=== PATIENT | male | born 1965 | race Hispanic/Latino ===

== ENCOUNTER 2017-12-31 10:55 | Emergency (ER) | payer SELFPAY ==
[2017-12-31] MEDS ORDERED: HYDROCODONE/APAP 10/325 TAB ONE (11:50)
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
[2017-12-31 12:57] VITALS: BP 177/104; TEMP 98; O2SAT 99
== END 2017-12-31 12:51 | disposition home or self-care (01) ==
LOC: ER 10:55
DX: T20.64XA Corrosion of second degree of nose (septum), initial encounter (principal); T54.3X1A Toxic effect of corrosive alkalis and alkali-like substances, accidental (unintentional), initial encounter; T28.5XXA Corrosion of mouth and pharynx, initial encounter; T32.0 Corrosions involving less than 10% of body surface; Y93.89 Activity, other specified; Y92.69 Other specified industrial and construction area as the place of occurrence of the external cause; Y99.0 Civilian activity done for income or pay; F17.210 Nicotine dependence, cigarettes, uncomplicated; K21.9 Gastro-esophageal reflux disease without esophagitis
CPT/HCPCS: 99283

== ENCOUNTER 2019-01-06 20:55 | Emergency (ER) | payer SELFPAY ==
[2019-01-06 21:30] LABS: Absolute Lymphocytes (CBC) 1.9 K/uL (0.7-4.9); Basophils % 0.5 % (0-1.3); Eosinophils % 3.1 % (0-4.4); Hematocrit 43.6 % (39.6-49.0); Lymphocytes % 23.6 % (15.3-44.8); MPV 8.2 fL (7.6-11.3); Monocytes % 6.7 % (3.3-12.3); RBC Red Blood Cell Count 5.14 M/uL (4.33-5.43)
[2019-01-06 21:34] LABS: Protime INR 0.91
--- NOTE | 2019-01-06 21:36 | RAD REPORT ---
EXAM DESCRIPTION: RAD - Chest Single View - 01/06/2019 9:20 pm CLINICAL HISTORY: CHEST PAIN Chest pain. COMPARISON: Chest Single View dated 08/26/2016; CHEST PA AND LAT 2 VIEW dated 11/22/2011; CHEST SINGLE VIEW dated 11/19/2008 FINDINGS: Portable technique limits examination quality. The lungs are grossly clear. The heart is normal in size. No displaced fractures. IMPRESSION: No acute intrathoracic process suspected.
[2019-01-06 21:50] LABS: ALT/SGPT 24 U/L (12-78); AST/SGOT 21 U/L (15-37); Albumin 3.6 g/dL (3.4-5.0); Alkaline Phosphatase 96 U/L (45-117); BUN Blood Urea Nitrogen 16 mg/dL (7-18); Bicarbonate 27 mmol/L (21-32); Bilirubin Direct < 0.1 mg/dL (0-0.2); Bilirubin Total 0.3 mg/dL (0.2-1.0); Glucose Level 95 mg/dL (74-106); Magnesium 2.5 mg/dL (1.8-2.4); NT PRO-BNP 14 pg/mL (<125); Potassium 3.7 mmol/L (3.5-5.1); Protein, Total 7.3 g/dL (6.4-8.2); Sodium Level 143 mmol/L (136-145); Troponin (Emerg Dept Use Only) < 0.02 ng/mL (0.0-0.045)
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
[2019-01-06] MEDS ORDERED: MAGNE/ALUM HYDROXD 30 ML UCUP ONE (22:40)
[2019-01-06] MEDS ORDERED: LIDOCAINE VISCOUS 2% SOLN 15 ML UDC ONE (22:40)
--- NOTE | 2019-01-07 10:57 | EKG ---
Test Date: 2019-01-06 Test Time: 21:10:15 Faro Dealer: ALL MEASUREMENT RESULTS: Intervals: Rate: 77 FL: 150 QRSD: 104 QT: 402 QTc: 454 [place]: P: -9 FL: 150 QRS: -21 T: 50 INTERPRETIVE STATEMENTS: Normal sinus rhythm Normal ECG Compared to ECG 11/19/2008 06:06:41 No significant changes Electronically Signed On 01-07-19 10:55:01 CDT by Abimael Conteh
[2019-01-08 18:00] VITALS: BP 110/81; O2SAT 100
== END 2019-01-06 22:31 | disposition home or self-care (01) ==
LOC: ER 20:55
DX: F10.10 Alcohol abuse, uncomplicated (principal); F17.210 Nicotine dependence, cigarettes, uncomplicated
CPT/HCPCS: 36415; 71045; 80048; 80076; 80320; 83735; 83880; 84484; 85025; 85610; 93005; 99285

== ENCOUNTER 2020-10-09 12:54 | Emergency (ER) | payer BC, SELFPAY ==
--- NOTE | 2020-10-09 13:23 | EDPHYS ---
Physician Documentation [facility] Name: Chris Sorto Age: 55 yrs Sex: Male : 1965 Arrival Date: 10/09/2020 Time: 12:57 Bed 6 Private MD: ED Physician Isabell Singh HPI: 10/09 13:15 This 55 yrs old Male presents to ER via Ambulatory with complaints of cp Abdominal Problem. 13:15 The patient presents with concern for hernia. Onset: The symptoms/episode cp began/occurred 1 week(s) ago. Associated signs and symptoms: Pertinent negatives: constipation, diarrhea, dysuria, fever, shortness of breath, testicular pain, vomiting. Severity of pain: in the emergency department the pain no pain. Historical: - Allergies: 13:12 No Known Allergies; aa5 - PMHx: 13:11 GERD; aa5 - PSHx: 13:11 None; aa5 - Immunization history:: Adult Immunizations up to date. - Social history:: Smoking status: unknown. ROS: 13:15 All other systems are negative. cp Exam: 13:15 Head/Face: Normocephalic, atraumatic. cp 13:15 Constitutional: The patient appears in no acute distress, alert, awake, comfortable, non-toxic, well developed, well nourished. 13:15 Chest/axilla: Inspection: normal. 13:15 Cardiovascular: Rate: normal. 13:15 Respiratory: the patient does not display signs of respiratory distress, Respirations: normal, no use of accessory muscles, no retractions. 13:15 Abdomen/GI: Inspection: abdomen appears normal, Palpation: abdomen is soft and non-tender, in all quadrants, Hernia: noted in the left inguinal area, incarceration, is not appreciated, tenderness, is not appreciated, reduced when patient lays flat. 13:15 Skin: cellulitis, is not appreciated, no rash present. Vital Signs: 13:04 BP 109 / 82; Pulse 83; Resp 16 S; Temp 98.1(O); Pulse Ox 100% on R/A; aa5 MDM: 13:11 Patient medically screened. cp 13:22 Data reviewed: vital signs, nurses notes, and as a result, I will discharge patient. cp 13:22 Counseling: I had a detailed discussion with the patient and/or guardian regarding: the cp historical points, exam findings, and any diagnostic results supporting the discharge/admit diagnosis, the need for outpatient follow up, for definitive care, a general surgeon, to return to the emergency department if symptoms worsen or persist or if there are any questions or concerns that arise at home. Administered Medications: No medications were administered Disposition: 13:30 Chart complete. cp Disposition: 10/09/20 13:22 Discharged to Home. Impression: Unilateral inguinal hernia, without obstruction or gangrene - left. - Condition is Stable. - Discharge Instructions: Inguinal Hernia, Adult. - Medication Reconciliation Form, Thank You Letter, Antibiotic Education, Prescription Opioid Use form. - Follow up: Ben Mccann MD; When: 10-11-2020; Reason: Recheck today's complaints, in office. - Problem is an ongoing problem. - Symptoms have improved. Addendum: 10/10/2020 18:42 Co-signature as Attending Physician, Isabell Singh MD. m a2 Signatures: Sis Ca, RN RN aa5 Freddy Melara PA PA cp Gerry Mcqueen, JASSON RN bp Isabell Singh MD MD ma2 Corrections: (The following items were deleted from the chart) 10/09 14:03 13:22 10/09/2020 13:22 Discharged to Home. Impression: Unilateral inguinal hernia, bp without obstruction or gangrene - left. Condition is Stable. Forms are Medication Reconciliation Form, Thank You Letter, Antibiotic Education, Prescription Opioid Use. Follow up: Ben Mccann; When: 10-11-2020; Reason: Recheck today's complaints, in office. Problem is an ongoing problem. Symptoms have improved. cp
--- NOTE | 2020-10-09 13:23 | ER ---
Nurse's Notes [facility] Name: Chris Sorto Age: 55 yrs Sex: Male : 1965 Arrival Date: 10/09/2020 Time: 12:57 Bed 6 Private MD: Diagnosis: Unilateral inguinal hernia, without obstruction or gangrene-left Presentation: 10/09 13:04 Chief complaint: Patient states: lower abd pain x 1 week ago. Pt states "I think I have aa5 a hernia because on I felt a bulge". 13:04 Onset of symptoms was September 2020. aa5 13:04 Acuity: GOLDEN 3 aa5 13:04 Method Of Arrival: Ambulatory aa5 13:04 Coronavirus screen: At this time, the client does not indicate any symptoms associated aa5 with coronavirus-19. Ebola Screen: Patient negative for fever greater than or equal to 101.5 degrees Fahrenheit, and additional compatible Ebola Virus Disease symptoms. 13:04 Initial Sepsis Screen: Does the patient meet any 2 criteria? No. Patient's initial aa5 sepsis screen is negative. Does the patient have a suspected source of infection? No. Patient's initial sepsis screen is negative. Risk Assessment: Do you want to hurt yourself or someone else? Patient reports no desire to harm self or others. Triage Assessment: 13:05 General: Appears distressed, uncomfortable, Behavior is cooperative, appropriate for bp age, anxious. Pain: Complains of pain in abdomen. EENT: No deficits noted. Neuro: No deficits noted. Cardiovascular: No deficits noted. Respiratory: No deficits noted. GI: Abdomen is non-distended. : No signs and/or symptoms were reported regarding the genitourinary system. Derm: No deficits noted. Musculoskeletal: No deficits noted. Historical: - Allergies: 13:12 No Known Allergies; aa5 - PMHx: 13:11 GERD; aa5 - PSHx: 13:11 None; aa5 - Immunization history:: Adult Immunizations up to date. - Social history:: Smoking status: unknown. Screenin:15 Abuse screen: Denies threats or abuse. Denies injuries from another. Nutritional bp screening: No deficits noted. Tuberculosis screening: No symptoms or risk factors identified. Fall Risk None identified. Assessment: 13:05 General: SEE TRIAGE NOTE. bp 14:00 Reassessment: PT D/C HOME AMBULATORY, DX WITH BILATERAL INGUINL HERNIA. bp Vital Signs: 13:04 BP 109 / 82; Pulse 83; Resp 16 S; Temp 98.1(O); Pulse Ox 100% on R/A; aa5 ED Course: 12:57 Patient arrived in ED. as 13:04 Arm band placed on. aa5 13:06 Freddy Melara PA is PHCP. cp 13:06 Isabell Snigh MD is Attending Physician. cp 13:11 Triage completed. aa5 13:15 Patient has correct armband on for positive identification. Bed in low position. Call bp light in reach. Side rails up X2. 13:21 Ben Mccann MD is Referral Physician. cp 13:54 Gerry Mcqueen, RN is Primary Nurse. bp 13:56 No provider procedures requiring assistance completed. Patient did not have IV access rb3 during this emergency room visit. Administered Medications: No medications were administered Outcome: 13:22 Discharge ordered by MD. cp 13:56 Discharged to home ambulatory. rb3 13:56 Condition: stable 13:56 Discharge instructions given to patient, Instructed on discharge instructions, follow up and referral plans. Demonstrated understanding of instructions, follow-up care, Prescriptions given X none 14:03 Patient left the ED. bp Signatures: Indu Key Audri, RN RN aa5 Freddy Melara PA PA cp Gerry Mcqueen, RN RN bp Humaira Forrest, RN RN rb3 Corrections: (The following items were deleted from the chart) 14:03 14:00 Reassessment: PT D/C HOME AMBULATORY, DX WITH ABDOMINAL HERNIA bp bp
[2020-10-09 18:33] VITALS: BP 109/82; TEMP 98.1; O2SAT 100
== END 2020-10-09 14:03 | disposition home or self-care (01) ==
LOC: ER 12:54
DX: K40.90 Unilateral inguinal hernia, without obstruction or gangrene, not specified as recurrent (principal); K21.9 Gastro-esophageal reflux disease without esophagitis
CPT/HCPCS: 99282